=== PATIENT | male | born 1955 | race Caucasian/White ===

== ENCOUNTER 2023-01-23 14:50 | Observation (INO) | payer MEDICARE, SELFPAY ==
[2023-01-23] VITALS (30 sets, daily range): BP systolic 112–142; BP diastolic 70–103; PULSE 49–139; RESP 13–33; TEMP 36.7–36.8; O2SAT 94–97; BMI 26.4; BMI 25.9
--- NOTE | 2023-01-23 14:59 | DI.RAD.S_ITS ---
PROCEDURE: XR CHEST 1V INDICATIONS: chest pain TECHNIQUE: One view of the chest was acquired. COMPARISON: None. FINDINGS: Surgical changes and devices: None. Lungs and pleura: Lungs are clear. No pleural effusions or pneumothorax. Mediastinum: Mildly tortuous thoracic aorta is seen. Heart size is normal. Bones and chest wall: No suspicious bony lesions. Overlying soft tissues appear unremarkable. IMPRESSION: No acute cardiopulmonary pathology. Dictated by: Matias Oden M.D. on 01/23/2023 at 15:44 Approved by: Matias Oden M.D. on 01/23/2023 at 15:44
[2023-01-23] MEDS: ASPIRIN 81 MG CHEW TAB 324 MG PO (15:09)
[2023-01-23 15:19] LABS: Add Manual Diff / Slide Review NO; Basophils Absolute Auto 100 /uL (0-100); Eosinophils Absolute Auto 100 /uL (0-450); Eosinophils Percent Auto 1.7 % (2-4); Hematocrit 44.6 % (41-53); Hemoglobin 15.5 g/dL (13.5-17.5); Lymphocytes Absolute Auto 2200 /uL (1100-4500); Lymphocytes Percent Auto 29.2 % (25-40); Mean Corpuscular HGB Conc 34.6 % (30-36); Mean Corpuscular Hemoglobin 32.5 PG (26-34); Monocytes Absolute Auto 1100 /uL (0-900); Monocytes Percent Auto 15.2 % (3-14); Neutrophils Absolute Auto 3900 /uL (1500-7000); Neutrophils Percent Auto 52.9 % (50-75); Platelet Count 183 X10^3/uL (150-400); Red Blood Cell Count 4.75 X10^6/uL (4.5-5.9); Red Cell Distribution Width 12.4 % (11.6-14.8); White Blood Cell Count 7.4 X10^3/uL (4.5-11.0)
[2023-01-23 15:24] LABS: Prothrombin Time 11.5 SECONDS (10.1-12.7)
[2023-01-23 15:27] LABS: PTT Partial Thromboplastin Tim 32 SECONDS (26-36)
[2023-01-23 15:35] LABS: Alanine Aminotransferase 26 IU/L (<50); Albumin 4.4 g/dL (3.5-5.0); Albumin Globulin Ratio 1.3 (1.0-2.8); Alkaline Phosphatase 68 U/L (38-126); Aspartate Aminotransferase 37 IU/L (17-59); BUN Creatinine Ratio 18.1 (6-22); Blood Urea Nitrogen 15 mg/dL (9-20); Calcium 9.1 mg/dL (8.4-10.2); Carbon Dioxide 26 mmol/L (22-32); Chloride 102 mmol/L (98-107); Creatine Kinase 47 U/L (55-170); Estimated Glomerular Filt Rate > 60 mL/min (>60); Globulin 3.4 g/dL (1.7-4.1); Glucose 93 mg/dL (80-110); HEMOLYSIS 38 (0-50); Lipase 79 U/L (23-300); Magnesium 1.9 mg/dL (1.6-2.3); Potassium 4.5 mmol/L (3.4-5.1); Sodium 136 mmol/L (137-145); Total Protein 7.8 g/dL (6.3-8.2)
--- NOTE | 2023-01-23 15:44 | ED_ITS ---
HPI - Arrhythmia/Palpitations General Chief Complaint: Arrhythmia/Palpitations Stated Complaint: dr ref/afib Time Seen by Provider: 01/23/23 15:44 Source: patient Mode of arrival: Ambulatory Limitations: no limitations History of Present Illness HPI narrative: This is a 67-year-old male with history of asthma, prior TIA with PFO closure about 20 years ago. Patient states he noticed regular heartbeat this morning he states it was a lot worse than his actually improved now. States no chest pain or pressure but does feel little tight when he exerts himself, only shortness of breath with exertion but not enough to really wind him. No diaphoresis, no lightheadedness or passing out, no nausea or vomiting, no swelling of extremities. Patient does not think he is had similar episodes in the past. He states other surgeries besides is PFO closure. Use albuterol and Flovent as needed. No aspirin or thinners. No known drug allergies. No tobacco, drinks 3 glasses of wine daily, no illicit. He has a sister who has reportedly SVT. Parents do not have any cardiac arrhythmia history. His primary care is Dr. [facility]. Does not follow with any other speciality physicians. Lives on [address] [address]. Related Data Home Medications Medication Instructions Recorded Confirmed albuterol 90 mcg/actuation aerosol mcg inhalation 01/23/23 01/23/23 inhaler fluticasone propionate 220 1 puff inhalation BID 01/23/23 01/23/23 mcg/actuation HFA aerosol inhaler (Flovent HFA) Allergies Allergy/AdvReac Type Severity Reaction Status Date / Time No Known Drug Allergies Allergy Verified 01/23/23 14:59 Review of Systems Review of Systems ROS Unobtainable: All systems reviewed & are unremarkable except as noted in HPI and below Patient History Social History Smoking Status: Never smoker Smoking Status: Never smoker alcohol intake frequency: 3 or more drinks per day Alcohol type: wine Substance Use Type: does not use Exam Narrative Exam Narrative: GENERAL: Alert and oriented x three, well-appearing male in mild distress HEENT: Head normocephalic, atraumatic, EOMI, pupils reactive, face symmetric, moist mucous membranes NECK: Supple, full range of motion CARDIOVASCULAR: Irregularly irregular rate and rhythm without murmurs, rubs or gallops. No JVD. No swelling bilateral lower extremities. RESPIRATORY: Breath sounds equal bilaterally, no wheezes rales or rhonchi. No tachypnea or accessory muscle use. ABDOMEN: Soft, nontender. Normoactive bowel sounds all 4 quadrants. No guarding or rebound, rigidity, no mass : No CVA tenderness EXTREMITIES: Normal range of motion, no clubbing or edema. Neurovascularly intact NEUROLOGICAL: Cranial nerves II through XII grossly intact. Moving all extremities SKIN: Warm, dry, no petechiae, no rashes or lesions. Initial Vital Signs Initial Vital Signs: Vital Signs Temperature 98.3 F 01/23/23 14:53 Pulse Rate 71 01/23/23 14:53 Respiratory Rate 18 01/23/23 14:53 Blood Pressure 138/90 01/23/23 14:53 Pulse Oximetry 97 01/23/23 14:53 Oxygen Delivery Method Room Air 01/23/23 14:53 Course Orders Ordered: ED Orders 01/23/23 14:59 XR chest 1V Stat EKG-12 Lead Stat 01/23/23 15:00 BNP [NT-proBNP (BNP-Adult 18+)] Stat Complete Blood Count AUTO DIFF Stat Comprehensive Metabolic Panel Stat D Dimer Stat Lipase Stat Magnesium Stat PTT Partial Thromboplastin Galindo Stat Prothrombin Time INR Stat TSH [Thyroid Stimulating Hormone] Stat Troponin & CK Cardiac Panel Stat 01/23/23 18:03 Trop I [Troponin I] Stat DILTIAZEM (Diltiazem 125 Mg/125 Ml-D5w) 125 mg in 125 mls @ 5 mls/hr IV TITRATE CARA; Protocol Last Titration: 01/23/23 18:45 Dose: 10 mg/hr, 10 mls/hr Documented By: Titration: 01/23/23 18:37 Dose: 10 mg/hr, 10 mls/hr Documented By: Admin: 01/23/23 17:12 Dose: 5 mg/hr, 5 mls/hr Documented By: AMU Discontinued Medications Aspirin (Aspirin 81 Mg Chew Tab) 324 mg PO NOW ONE Stop: 01/23/23 15:00 Last Admin: 01/23/23 15:09 Dose: 324 mg Documented By: ALLEN Diltiazem HCl (Diltiazem 5 Mg/Ml Sdv) 10 mg IV NOW ONE Stop: 01/23/23 15:56 Last Admin: 01/23/23 16:00 Dose: 10 mg Documented By: AMU Diltiazem HCl (Diltiazem 5 Mg/Ml Sdv) 10 mg IV NOW ONE Stop: 01/23/23 16:19 Last Admin: 01/23/23 16:24 Dose: 10 mg Documented By: AMGary Sodium Chloride (Normal Saline 0.9%) 1,000 mls @ 1,000 mls/hr IV BOLUS ONE Stop: 01/23/23 16:54 Last Infusion: 01/23/23 16:50 Dose: 0 mls/hr Documented By: AMGary Admin: 01/23/23 15:58 Dose: 1,000 mls/hr Documented By: GEOVANY Metoprolol Tartrate (Metoprolol Ir 25 Mg Tablet) 25 mg PO NOW ONE Stop: 01/23/23 18:33 Last Admin: 01/23/23 18:35 Dose: 25 mg Documented By: GEOVANY Vital Signs Vital signs: Vital Signs - 8 hr 01/23/23 14:53 01/23/23 16:00 01/23/23 16:24 Temperature 98.3 F Pulse Rate 71 121 H 82 Respiratory Rate 18 Blood Pressure 138/90 136/91 H 139/102 H Pulse Oximetry 97 Oxygen Delivery Method Room Air 01/23/23 15:29 01/23/23 15:30 01/23/23 15:30 Temperature Pulse Rate 62 139 H Respiratory Rate 13 Blood Pressure 142/103 H Pulse Oximetry 96 96 Oxygen Delivery Method 01/23/23 16:00 01/23/23 16:00 01/23/23 16:10 Temperature Pulse Rate 116 H Respiratory Rate 21 Blood Pressure 136/91 H 133/93 H Pulse Oximetry 96 Oxygen Delivery Method 01/23/23 16:10 01/23/23 16:20 01/23/23 16:20 Temperature Pulse Rate 90 80 Respiratory Rate 19 20 Blood Pressure 139/102 H Pulse Oximetry 96 96 Oxygen Delivery Method 01/23/23 16:30 01/23/23 16:30 01/23/23 16:40 Temperature Pulse Rate 81 Respiratory Rate 20 Blood Pressure 119/76 124/84 Pulse Oximetry 94 Oxygen Delivery Method 01/23/23 16:40 01/23/23 16:50 01/23/23 16:50 Temperature Pulse Rate 70 74 Respiratory Rate 20 18 Blood Pressure 133/79 Pulse Oximetry 95 96 Oxygen Delivery Method 01/23/23 17:00 01/23/23 17:00 01/23/23 17:13 Temperature Pulse Rate 75 77 Respiratory Rate 14 Blood Pressure 118/73 Pulse Oximetry 96 97 Oxygen Delivery Method 01/23/23 17:13 01/23/23 17:20 01/23/23 17:20 Temperature Pulse Rate 79 Respiratory Rate 22 Blood Pressure 122/79 120/87 Pulse Oximetry 97 Oxygen Delivery Method 01/23/23 17:30 01/23/23 17:30 01/23/23 17:40 Temperature Pulse Rate 89 Respiratory Rate Blood Pressure 114/82 123/84 Pulse Oximetry 97 Oxygen Delivery Method 01/23/23 17:40 01/23/23 17:50 01/23/23 17:50 Temperature Pulse Rate 69 70 Respiratory Rate 19 Blood Pressure 137/89 Pulse Oximetry 97 97 Oxygen Delivery Method 01/23/23 18:00 01/23/23 18:00 Temperature Pulse Rate 77 Respiratory Rate 22 Blood Pressure 125/78 Pulse Oximetry 96 Oxygen Delivery Method MDM - Arrhythmia/Palpitations Lab Data 01/23/23 15:00 01/23/23 15:00 Labs: Lab Results 01/23/23 01/23/23 01/23/23 Range/Units 15:00 15:00 15:00 WBC 7.4 (4.5-11.0) X10^3/uL RBC 4.75 (4.5-5.9) X10^6/uL Hgb 15.5 (13.5-17.5) g/dL Hct 44.6 (41-53) % MCV 94.0 (80-100) fL MCH 32.5 (26-34) PG MCHC 34.6 (30-36) % RDW 12.4 (11.6-14.8) % Plt Count 183 (150-400) X10^3/uL Neut % (Auto) 52.9 (50-75) % Lymph % (Auto) 29.2 (25-40) % [place] % (Auto) 15.2 H (3-14) % Eos % (Auto) 1.7 L (2-4) % Baso % (Auto) 1.0 (0-2) % Neut # (Auto) 3900 (0530-5047) /uL Lymph # (Auto) 2200 (1629-4007) /uL [place] # (Auto) 1100 H (0-900) /uL Eos # (Auto) 100 (0-450) /uL Baso # (Auto) 100 (0-100) /uL PT 11.5 (10.1-12.7) SECONDS INR 1.0 (0.9-1.3) APTT 32 (26-36) SECONDS D-Dimer (<500) ng/ml Sodium 136 L (137-145) mmol/L Potassium 4.5 (3.4-5.1) mmol/L Chloride 102 (98-107) mmol/L Carbon Dioxide 26 (22-32) mmol/L BUN 15 (9-20) mg/dL Creatinine 0.83 (0.66-1.25) mg/dL Estimated GFR > 60 (>60) mL/min BUN/Creatinine Ratio 18.1 (6-22) Glucose 93 (80-110) mg/dL Calcium 9.1 (8.4-10.2) mg/dL Magnesium 1.9 (1.6-2.3) mg/dL Total Bilirubin 1.0 (0.2-1.3) mg/dL AST 37 (17-59) IU/L ALT 26 (<50) IU/L Alkaline Phosphatase 68 (38-126) U/L Total Creatine Kinase 47 L (55-170) U/L Troponin I 0.025 (0.01-0.034) ng/mL NT-Pro-B Natriuret Pep (<125) pg/mL Total Protein 7.8 (6.3-8.2) g/dL Albumin 4.4 (3.5-5.0) g/dL Globulin 3.4 (1.7-4.1) g/dL Albumin/Globulin Ratio 1.3 (1.0-2.8) Lipase 79 (23-300) U/L TSH (0.47-4.68) uIU/mL 01/23/23 01/23/23 01/23/23 Range/Units 15:00 15:00 15:00 WBC (4.5-11.0) X10^3/uL RBC (4.5-5.9) X10^6/uL Hgb (13.5-17.5) g/dL Hct (41-53) % MCV (80-100) fL MCH (26-34) PG MCHC (30-36) % RDW (11.6-14.8) % Plt Count (150-400) X10^3/uL Neut % (Auto) (50-75) % Lymph % (Auto) (25-40) % [place] % (Auto) (3-14) % Eos % (Auto) (2-4) % Baso % (Auto) (0-2) % Neut # (Auto) (2305-4829) /uL Lymph # (Auto) (2446-5189) /uL [place] # (Auto) (0-900) /uL Eos # (Auto) (0-450) /uL Baso # (Auto) (0-100) /uL PT (10.1-12.7) SECONDS INR (0.9-1.3) APTT (26-36) SECONDS D-Dimer 368 (<500) ng/ml Sodium (137-145) mmol/L Potassium (3.4-5.1) mmol/L Chloride (98-107) mmol/L Carbon Dioxide (22-32) mmol/L BUN (9-20) mg/dL Creatinine (0.66-1.25) mg/dL Estimated GFR (>60) mL/min BUN/Creatinine Ratio (6-22) Glucose (80-110) mg/dL Calcium (8.4-10.2) mg/dL Magnesium (1.6-2.3) mg/dL Total Bilirubin (0.2-1.3) mg/dL AST (17-59) IU/L ALT (<50) IU/L Alkaline Phosphatase (38-126) U/L Total Creatine Kinase (55-170) U/L Troponin I (0.01-0.034) ng/mL NT-Pro-B Natriuret Pep 73 (<125) pg/mL Total Protein (6.3-8.2) g/dL Albumin (3.5-5.0) g/dL Globulin (1.7-4.1) g/dL Albumin/Globulin Ratio (1.0-2.8) Lipase (23-300) U/L TSH 2.24 (0.47-4.68) uIU/mL 01/23/23 Range/Units 18:03 WBC (4.5-11.0) X10^3/uL RBC (4.5-5.9) X10^6/uL Hgb (13.5-17.5) g/dL Hct (41-53) % MCV (80-100) fL MCH (26-34) PG MCHC (30-36) % RDW (11.6-14.8) % Plt Count (150-400) X10^3/uL Neut % (Auto) (50-75) % Lymph % (Auto) (25-40) % [place] % (Auto) (3-14) % Eos % (Auto) (2-4) % Baso % (Auto) (0-2) % Neut # (Auto) (1115-3666) /uL Lymph # (Auto) (1175-7803) /uL [place] # (Auto) (0-900) /uL Eos # (Auto) (0-450) /uL Baso # (Auto) (0-100) /uL PT (10.1-12.7) SECONDS INR (0.9-1.3) APTT (26-36) SECONDS D-Dimer (<500) ng/ml Sodium (137-145) mmol/L Potassium (3.4-5.1) mmol/L Chloride (98-107) mmol/L Carbon Dioxide (22-32) mmol/L BUN (9-20) mg/dL Creatinine (0.66-1.25) mg/dL Estimated GFR (>60) mL/min BUN/Creatinine Ratio (6-22) Glucose (80-110) mg/dL Calcium (8.4-10.2) mg/dL Magnesium (1.6-2.3) mg/dL Total Bilirubin (0.2-1.3) mg/dL AST (17-59) IU/L ALT (<50) IU/L Alkaline Phosphatase (38-126) U/L Total Creatine Kinase (55-170) U/L Troponin I 0.028 (0.01-0.034) ng/mL NT-Pro-B Natriuret Pep (<125) pg/mL Total Protein (6.3-8.2) g/dL Albumin (3.5-5.0) g/dL Globulin (1.7-4.1) g/dL Albumin/Globulin Ratio (1.0-2.8) Lipase (23-300) U/L TSH (0.47-4.68) uIU/mL Imaging Data Chest x-ray: Radiologist's Impresson: [address] [address] XRay Report Signed Patient: Gera Bennett MR#: [id number] : 1955 Acct:[id number] Age/Sex: 67 / M Date of Service: 01/23/23 Loc: ED Accession Number: [id number] ?? Procedure: XR chest 1V Ordering Provider: Danika Lopez D.O. PROCEDURE:? XR CHEST 1V ? INDICATIONS:? chest pain ? TECHNIQUE:? One view of the chest was acquired.? ? COMPARISON:? None. ? FINDINGS:? ? Surgical changes and devices:? None.? ? Lungs and pleura:? Lungs are clear.? No pleural effusions or pneumothorax.? ? Mediastinum:? Mildly tortuous thoracic aorta is seen.? Heart size is normal.? ? Bones and chest wall:? No suspicious bony lesions.? Overlying soft tissues appear unremarkable.? ? IMPRESSION:? No acute cardiopulmonary pathology. ? ? Dictated by: Matias Oden M.D. on 01/23/2023 at 15:44 ? ? Approved by: Matias Oden M.D. on 01/23/2023 at 15:44?? ECG Data Attestation: I personally reviewed and interpreted this ECG as follows: Prior ECG tracings: not available for review Interpretation[facility] arrived with shows AFib with rapid ventricular response when he 43, QRS of [address]TC [address] No acute ST elevation. Patient has some depression in V3 V4. Repeat EKG here in the department shows atrial fibrillation with RVR with a rate of 128 QRS of 96 QTC of 400, no elevation noted. Patient has little bit depression V4 5 6 does not appear significantly changed from prior today. No priors available. MDM Narrative Medical decision making narrative: 67-year-old male with a new onset of AFib with RVR, possibly overnight but patient states it felt much worse this morning feels improved now came with a heart rate 20s to 150s. Patient does have history of PFO found after he had TIA approximately 20 years ago had repair. No other no cardiac history does have family history this sister with reported SVT history. Patient does not have any major changes to CBC, coags dimer is negative, electrolytes sitting magnesium potassium are 4.5 and 1.9 respectively, troponin was 0.025 and repeat is 0.028, TSH is negative. Chest x-ray shows no acute changes, no infection or CHF. Patient did have some ST depression in lateral leads with tachycardia. First 2 doses of diltiazem 10 mg IV so heart rate somewhat but minimal change. Started on drip, patient had significant improvement into the 70s. Discussed with Dr. Cobb who asked for 2nd troponin which was performed, oral dose of metoprolol 25 mg and accepts patient for ICU with goal to wean off on diltiazem drip. Discussed with patient he is agreeable to the plan. We did note that he drinks about 3 alcoholic drinks daily and this could predispose him a little bit to cardiac arrhythmias. Discharge Plan Departure Patient Disposition: Admitted as Observation Clinical Impression: Atrial fibrillation with rapid ventricular response Admit Date/Time: 01/23/23 18:08 Admit Provider: Mars Cobb
[2023-01-23 15:46] LABS: Troponin I 0.025 ng/mL (0.01-0.034)
[2023-01-23] MEDS: SODIUM CHLORIDE 0.9% 1,000 ML 1000 ML IV (15:58)
[2023-01-23] MEDS: dilTIAZem 5 MG/ML SDV 10 MG IV ×2 (16:00→16:24)
[2023-01-23 16:08] LABS: NT-proBNP (BNP-Adult 18+) 73 pg/mL (<125)
[2023-01-23 16:15] LABS: D Dimer 368 ng/ml (<500)
[2023-01-23 16:30] LABS: Thyroid Stimulating Hormone 2.24 uIU/mL (0.47-4.68)
[2023-01-23] MEDS: DILTIAZEM 125 MG/125 ML PIGGYBACK IV (17:12)
[2023-01-23] MEDS: METOPROLOL IR 25 MG TABLET PO (18:35)
[2023-01-23 18:42] LABS: Troponin I 0.028 ng/mL (0.01-0.034)
--- NOTE | 2023-01-23 19:29 | DI.ECHO.S_ITS ---
[facility] +---------+ [facility] +---------+ : : [address] : : : : [id number] : : : : Phone: [phone] Echocardiogram Report + + :Name: TONY CURTIS Study Date: 01/24/2023 Height: 72 in : :[facility] ReadingLocation: Weight: 191 lb : : Gender: Male BSA: 2.1 m2 : :: 1955 Age: 67 yrs BP: 109/67 mmHg: :Reason For Study: ATRIAL FIBRILLATION : :Ordering Physician: IRLANDA, : :HARRY Performed By: Micaela Laughlin : :Referring: HARRY FOURNIER : + + Interpretation Summary 1) Normal left ventricular size and thickness with mildly reduced systolic function (EF 45-50%). 2) Mildly enlarged right ventricle with low normal function. 3) The left atrium is moderately dilated. 4) There is mild to moderate aortic regurgitation. 5) The ascending aorta is moderately enlarged at 4.5cm. 6) No prior Echo available for comparisoin. Procedure: A two-dimensional transthoracic echocardiogram with color flow and Doppler was performed. The study quality was technically adequate. There is no prior echocardiogram noted for this patient. The patient was in atrial fibrillation with heart rates between 61-85 bpm during the exam. Left Ventricle: The left ventricle is normal in size and wall thickness. The ejection fraction is estimated to be 45-50%. There is mild global hypokinesis of the left ventricle. Diastolic function could not be accurately assessed due to atrial fibrillation. Right Ventricle: The right ventricle is mildly dilated. Right ventricular systolic function is at the lower limits of normal. Atria: The left atrium is moderately dilated. Right atrial size is normal. There is no Doppler evidence for an interatrial shunt. Mitral Valve: The mitral valve is normal in structure and function. There is mild mitral regurgitation. Aortic Valve: The aortic valve is trileaflet. The aortic valve opens well. There is no aortic valve stenosis. There is mild to moderate aortic regurgitation. Tricuspid Valve: The tricuspid valve is normal in structure and function. There is mild tricuspid regurgitation. Pulmonary artery pressures cannot be estimated because of the lack of a measurable TR jet velocity. Pulmonic Valve: The pulmonic valve leaflets are thin and pliable; valve motion is normal. There is mild pulmonic regurgitation. Great Vessels: The aortic root is moderately dilated. The ascending aorta is moderately enlarged. The IVC is dilated (diameter is greater than 2.1 cm) yet it collapses greater than 50% with a sniff. This suggests a right atrial pressure of 8 mm Hg. Pericardium/ Pleura There is no pericardial effusion. There is no pleural effusion. MMode/2D Measurements & Calculations LVIDd: 5.2 cm LVOT diam: 2.5 cm LVIDs: 3.7 cm Ao root diam: 4.5 cm FS: 28.6 % asc Aorta Diam: 4.5 cm EPSS: 1.8 cm Ao Arch Diam (Prox Trans): 3.7 cm IVSd: 0.96 cm LVPWd: 0.87 cm LV meléndez. diameter/BSA (cm/m^2): 2.5 LV sys. diameter/BSA (cm/m^2): 1.8 LA A2 area: 25.0 cm2 RA long axis: 5.2 cm LA A4 area: 17.9 cm2 RA area: 16.3 cm2 LA length (vol): 4.8 cm RA vol: 43.4 ml LA vol: 79.6 ml RA : 20.8 ml/m2 LA vol index: 38.1 ml/m2 IVC diam: 2.3 cm RVD1 (basal): 4.2 cm RVD2 (mid): 3.6 cm TAPSE: 1.6 cm Doppler Measurements & Calculations Ao V2 max: 87.6 cm/sec LVOT Max Chetan: 75.6 cm/sec Ao V2 mean: 66.5 cm/sec LV V1 max P.3 mmHg Ao max P.1 mmHg LV V1 VTI: 14.1 cm Ao mean P.9 mmHg RAFY(I,D): 4.2 cm2 Ao V2 VTI: 16.8 cm RAFY(V,D): 4.3 cm2 sev ratio: 0.84 RAFY indexed to BSA (cm^2/m^2): 2.0 MV E max chetan: 48.2 cm/sec PA V2 max: 73.3 cm/sec MV A max chetan: 2.0 cm/sec PA V2 mean: 49.7 cm/sec MV E/A: 24.3 PA mean P.1 mmHg Med Peak E' Chetan: 7.0 cm/sec PA pr(Accel): 34.5 mmHg E/E' med: 6.9 Lat Peak E' Chetan: 8.3 cm/sec E/E' lat: 5.8 E/e' average: 6.4 MV dec time: 0.23 sec SV(LVOT): 70.5 ml Reading Physician:12:10 PM
[2023-01-23 20:12] LABS: Ethanol (ETOH) < 10 mg/dL
[2023-01-23 20:39] LABS: Free T4, Direct Thyroxine 1.29 ng/dL (0.78-2.19)
[2023-01-23] MEDS: APIXABAN 5 MG TABLET PO (20:43)
--- NOTE | 2023-01-23 21:05 | P.HP_ITS ---
History of Present Illness History of Present Illness Date Patient Seen: 01/23/23 Time Patient Seen: 20:30 Chief complaint: dr ref/afib Narrative: Gera Bennett is a 67-year-old male with a past medical history of TIA, PFO closure (20yrsago), and asthma takes only albuterol and Flovent, who woke up this morning feeling a pounding rapid heart rate with no other associated symptoms. Lives on [facility] presented to the ED with hypertensive urgency 139/102, 142/103, in atrial fibrillation heart rates 116-139. I personally reviewed- EKG: AFib with RVR rate 143 ST depression in V4, V5, V6, no EKG for comparison. Patient was given 2 doses 10 mg IV diltiazem without improvement, was placed on diltiazem drip, was also then given oral metoprolol 25 mg. 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 On admit patient denies chest pain, shortness in breath, headache, changes in vision, difficulty swallowing, speech impairment, weakness, numbness, tingling, difficulty with ambulation, recent falls, head injury, LOC, fever, body aches, chills, cough, recent exposure to illness, abdominal pain, nausea, vomiting, urinary incontinence/retention, dysuria, frequency, urgency, hematuria, bowel changes, constipation, incontinence, melena, rashes, recent changes to m edication, illness, injury, or trauma. Patient continues to be asymptomatic at the time of admit, diltiazem drip has been paused as his heart rate has been dipping into the 50s. Temp 98.3?, 124/82, 67, 18, 97% on room air. Patient is sitting up on the side of the bed eating comfortably. CBC CMP are all normal, initial troponins are normal 0.025, 0.028. D-dimer 368 and BNP 73 are normal. Chest x-ray is negative. Patient is admitted for atrial fibrillation with RVR. [facility] Medical History Asthma History of TIA (transient ischemic attack) Surgical History S/P patent foramen ovale closure Family History (Updated 01/23/23 @ 21:14 by JOSE Price) Father Lung fibrosis Sister Status post ablation of atrial fibrillation Mother Congestive heart failure Social History (Updated 01/23/23 @ 21:15 by JOSE Price) marital status: household members: spouse lives independently: Yes housing: house occupational status: employed Smoking Status: Never smoker alcohol intake: current substance use type: does not use Meds Home Medications and Allergies Allergies Allergy/AdvReac Type Severity Reaction Status Date / Time No Known Drug Allergies Allergy Verified 01/23/23 14:59 Review of Systems Review of Systems Narrative: On admit patient denies chest pain, shortness in breath, headache, changes in vision, difficulty swallowing, speech impairment, weakness, numbness, tingling, difficulty with ambulation, recent falls, head injury, LOC, fever, body aches, chills, cough, recent exposure to illness, abdominal pain, nausea, vomiting, urinary incontinence/retention, dysuria, frequency, urgency, hematuria, bowel changes, constipation, incontinence, melena, rashes, recent changes to medication, illness, injury, or trauma. Exam Vital Signs (past 8 hours): - 01/23/23 14:53 01/23/23 16:00 01/23/23 16:24 Temperature 98.3 F Pulse Rate 71 121 H 82 Respiratory Rate 18 Blood Pressure 138/90 136/91 H 139/102 H Pulse Oximetry 97 Oxygen Delivery Method Room Air Oxygen Flow Rate 01/23/23 15:29 01/23/23 15:30 01/23/23 15:30 Temperature Pulse Rate 62 139 H Respiratory Rate 13 Blood Pressure 142/103 H Pulse Oximetry 96 96 Oxygen Delivery Method Oxygen Flow Rate 01/23/23 16:00 01/23/23 16:00 01/23/23 16:10 Temperature Pulse Rate 116 H Respiratory Rate 21 Blood Pressure 136/91 H 133/93 H Pulse Oximetry 96 Oxygen Delivery Method Oxygen Flow Rate 01/23/23 16:10 01/23/23 16:20 01/23/23 16:20 Temperature Pulse Rate 90 80 Respiratory Rate 19 20 Blood Pressure 139/102 H Pulse Oximetry 96 96 Oxygen Delivery Method Oxygen Flow Rate 01/23/23 16:30 01/23/23 16:30 01/23/23 16:40 Temperature Pulse Rate 81 Respiratory Rate 20 Blood Pressure 119/76 124/84 Pulse Oximetry 94 Oxygen Delivery Method Oxygen Flow Rate 01/23/23 16:40 01/23/23 16:50 01/23/23 16:50 Temperature Pulse Rate 70 74 Respiratory Rate 20 18 Blood Pressure 133/79 Pulse Oximetry 95 96 Oxygen Delivery Method Oxygen Flow Rate 01/23/23 17:00 01/23/23 17:00 01/23/23 17:13 Temperature Pulse Rate 75 77 Respiratory Rate 14 Blood Pressure 118/73 Pulse Oximetry 96 97 Oxygen Delivery Method Oxygen Flow Rate 01/23/23 17:13 01/23/23 17:20 01/23/23 17:20 Temperature Pulse Rate 79 Respiratory Rate 22 Blood Pressure 122/79 120/87 Pulse Oximetry 97 Oxygen Delivery Method Oxygen Flow Rate 01/23/23 17:30 01/23/23 17:30 01/23/23 17:40 Temperature Pulse Rate 89 Respiratory Rate Blood Pressure 114/82 123/84 Pulse Oximetry 97 Oxygen Delivery Method Oxygen Flow Rate 01/23/23 17:40 01/23/23 17:50 01/23/23 17:50 Temperature Pulse Rate 69 70 Respiratory Rate 19 Blood Pressure 137/89 Pulse Oximetry 97 97 Oxygen Delivery Method Oxygen Flow Rate 01/23/23 18:00 01/23/23 18:00 01/23/23 18:10 Temperature Pulse Rate 77 Respiratory Rate 22 Blood Pressure 125/78 129/80 Pulse Oximetry 96 Oxygen Delivery Method Oxygen Flow Rate 01/23/23 18:10 01/23/23 18:20 01/23/23 18:20 Temperature Pulse Rate 63 78 Respiratory Rate 14 Blood Pressure 127/82 Pulse Oximetry 95 95 Oxygen Delivery Method Oxygen Flow Rate 01/23/23 18:30 01/23/23 18:30 01/23/23 18:59 Temperature Pulse Rate 73 67 Respiratory Rate 22 18 Blood Pressure 127/81 124/82 Pulse Oximetry 95 97 Oxygen Delivery Method Room Air Oxygen Flow Rate 01/23/23 18:40 01/23/23 18:40 01/23/23 19:00 Temperature Pulse Rate 70 79 Respiratory Rate 25 H 33 H Blood Pressure 132/84 Pulse Oximetry 97 97 Oxygen Delivery Method Oxygen Flow Rate 01/23/23 19:14 01/23/23 19:14 01/23/23 19:43 Temperature Pulse Rate 72 Respiratory Rate 21 Blood Pressure 115/77 129/83 Pulse Oximetry 97 Oxygen Delivery Method Oxygen Flow Rate 0 01/23/23 19:43 01/23/23 20:00 01/23/23 20:01 Temperature 98.0 F Pulse Rate 49 L 69 75 Respiratory Rate 14 30 H 18 Blood Pressure Pulse Oximetry 96 95 96 Oxygen Delivery Method Oxygen Flow Rate 0 01/23/23 20:01 Temperature Pulse Rate Respiratory Rate Blood Pressure 122/90 Pulse Oximetry Oxygen Delivery Method Oxygen Flow Rate Oxygen Delivery Method Room Air Oxygen Flow Rate 0 Narrative Exam Narrative: General: Patient is a well-developed, well-nourished in no distress at this time. HEENT: Normocephalic, atraumatic, extraocular muscles intact, oral pharynx is clear and mucous membranes are moist. Neck is supple and symmetric, trachea is midline, no adenopathy, no thyroid enlargement, nontender, no masses palpated. Negative for JVD Chest: Normal AP diameter and contour without kyphoscoliosis, Equal chest rise without nasal flaring, retractions, tachypneic or labored breathing. Lungs: Auscultation of all lung bishop are clear without adventitious sounds, wheezes, rhonchi, or rales. Cardio: regular rate and rhythm without murmur, rubs, or gallops, no carotid bruit, no cardiac pulsations present. Abdomen: Soft nontender, negative for organomegaly, or masses. Bowel sounds are present in all 4 quadrants without guarding or rebound, no CVA tenderness. Musculoskeletal: Muscle strength and tone are equal, no deformity, crepitus, effusions, cyanosis, clubbing or edema present. Full range of motion intact radial and pedal pulses are normal. Skin: Warm dry and intact without rashes, ulcerations or petechiae. Neuro: Alert and orientated x3, moves all extremities, sensation to touch intact, no gross deficits noted of cranial nerves. Psych: Patient has a well-kept appearance, appropriate affect, mental status attitude thought context and judgment are appropriate for age. Objective Labs 01/23/23 15:00 01/23/23 15:00 Labs: Laboratory Results - last 24 hr 01/23/23 01/23/23 01/23/23 15:00 15:00 15:00 WBC 7.4 RBC 4.75 Hgb 15.5 Hct 44.6 MCV 94.0 MCH 32.5 MCHC 34.6 RDW 12.4 Plt Count 183 Neut % (Auto) 52.9 Lymph % (Auto) 29.2 [place] % (Auto) 15.2 H Eos % (Auto) 1.7 L Baso % (Auto) 1.0 Neut # (Auto) 3900 Lymph # (Auto) 2200 [place] # (Auto) 1100 H Eos # (Auto) 100 Baso # (Auto) 100 PT 11.5 INR 1.0 APTT 32 D-Dimer Sodium 136 L Potassium 4.5 Chloride 102 Carbon Dioxide 26 BUN 15 Creatinine 0.83 Estimated GFR > 60 BUN/Creatinine Ratio 18.1 Glucose 93 Calcium 9.1 Magnesium 1.9 Total Bilirubin 1.0 AST 37 ALT 26 Alkaline Phosphatase 68 Total Creatine Kinase 47 L Troponin I 0.025 NT-Pro-B Natriuret Pep Total Protein 7.8 Albumin 4.4 Globulin 3.4 Albumin/Globulin Ratio 1.3 Lipase 79 TSH Free T4 Ethyl Alcohol 01/23/23 01/23/23 01/23/23 15:00 15:00 15:00 WBC RBC Hgb Hct MCV MCH MCHC RDW Plt Count Neut % (Auto) Lymph % (Auto) [place] % (Auto) Eos % (Auto) Baso % (Auto) Neut # (Auto) Lymph # (Auto) [place] # (Auto) Eos # (Auto) Baso # (Auto) PT INR APTT D-Dimer 368 Sodium Potassium Chloride Carbon Dioxide BUN Creatinine Estimated GFR BUN/Creatinine Ratio Glucose Calcium Magnesium Total Bilirubin AST ALT Alkaline Phosphatase Total Creatine Kinase Troponin I NT-Pro-B Natriuret Pep 73 Total Protein Albumin Globulin Albumin/Globulin Ratio Lipase TSH 2.24 Free T4 Ethyl Alcohol 01/23/23 01/23/23 01/23/23 18:03 19:50 19:50 WBC RBC Hgb Hct MCV MCH MCHC RDW Plt Count Neut % (Auto) Lymph % (Auto) Alger % (Auto) Eos % (Auto) Baso % (Auto) Neut # (Auto) Lymph # (Auto) Alger # (Auto) Eos # (Auto) Baso # (Auto) PT INR APTT D-Dimer Sodium Potassium Chloride Carbon Dioxide BUN Creatinine Estimated GFR BUN/Creatinine Ratio Glucose Calcium Magnesium Total Bilirubin AST ALT Alkaline Phosphatase Total Creatine Kinase Troponin I 0.028 NT-Pro-B Natriuret Pep Total Protein Albumin Globulin Albumin/Globulin Ratio Lipase TSH Free T4 1.29 Ethyl Alcohol < 10 Assessment & Plan Assessment & Plan narrative: Gera Bennett is a 67-year-old male with a history of TIA and PFO closure 20 years ago, asthma and takes albuterol and Flovent who is admitted to ICU observation for AFib with RVR on a diltiazem drip. Atrial fibrillation, new, acute, present on admission * ED: HR 116 to 143-AFib on echocardiogram * admitted to the ICU OBS on Dilt drip protocol-taper off * Metoprolol 25 mg b.i.d. -1st dose given in ED * Eliquis * Echo tomorrow Hypertensive urgency without the diagnosis of hypertension, acute, present on admission * ED: 139/102, 142/103 * Admit: 124/82 * Initiate 7/ orthostatics q.4 hours while awake only Asthma, chronic, moderate, present on admission * Continue albuterol and Flovent Overweight, mild, acute on chronic, present on admission * BMI 26 * dietary consult ordered regarding nutritional education and information for d ietary, lifestyle, exercise, and weight changes. * the patient is at much higher risk for medical and surgical complications due to obesity as it relates to chronic illnesses:, and acute illness. The patient's obesity increases the difficulty and complexity of medical and/or surgical interventions, management and increases the chances of poor outcome such as morbidity and mortality as well as impaired wound healing. Code status: Full Surrogate decision maker: Spouse/ DVT/VTE prophylaxis: Eliquis and SCDs Disposition: Patient admitted to the ICU for observation, expected length of stay not to exceed 2 midnights. I have utilized all available immediate resources to obtain, update, or review the patient's current medications. I confirmed that the patient's advanced care plan is present, Code status is documented and/or surrogate decision maker is listed in the patient's medical record. I have personally reviewed patient's chart notes from PCP, specialists, diagnostic imaging, and laboratory results. Scores ABCD2 Age >= 60 years: yes Initial BP. Either SBP >= 140 or DBP >= 90.: yes Clinical features of the TIA: other symptoms Duration of symptoms: >= 60 minutes History of diabetes: no ABCD2 Score: 4 CHADS-VASc Congestive heart failure: no Hypertension: no Age 75 years or older: no Diabetes mellitus: no Stroke, TIA, or TE: yes Vascular disease: no Age 65 to 74 years: yes Sex category (female): Male CHADS-VASc Score: 3
[2023-01-24] VITALS (9 sets, daily range): BP systolic 109–138; BP diastolic 67–87; PULSE 60–72; RESP 12–17; TEMP 36.2–36.6; O2SAT 95–98
[2023-01-24 05:20] LABS: BUN Creatinine Ratio 20.5 (6-22); Blood Urea Nitrogen 16 mg/dL (9-20); Calcium 8.6 mg/dL (8.4-10.2); Carbon Dioxide 26 mmol/L (22-32); Chloride 106 mmol/L (98-107); Cholesterol 184 mg/dL (140-199); Estimated Glomerular Filt Rate > 60 mL/min (>60); Glucose 95 mg/dL (80-110); HDL Cholesterol 59 mg/dL (40-60); HEMOLYSIS < 15 (0-50); LDL Cholesterol Calculated 107 mg/dL (<100); Magnesium 2.1 mg/dL (1.6-2.3); Potassium 4.1 mmol/L (3.4-5.1); Sodium 138 mmol/L (137-145); Triglycerides 88 mg/dL (35-150)
[2023-01-24 05:30] LABS: Troponin I 0.019 ng/mL (0.01-0.034)
[2023-01-24] MEDS: APIXABAN 5 MG TABLET PO (08:03)
[2023-01-24] MEDS: METOPROLOL IR 25 MG TABLET PO (08:04)
--- NOTE | 2023-01-24 08:05 | OT.IPNOTE ---
Per PT pt is completely independent in the room and hospitalist in agreement to ok discharge OT eval orders.
--- NOTE | 2023-01-24 08:18 | PT.IIE ---
Current Diagnoses Unspecified atrial fibrillation (01/23/23) [facility] History ([facility]23 [facility] 21[facility] S/P patent foramen ovale closure Medical History (Last Reviewed 01/23/23 @ 21:13 [facility] Asthma History of TIA (transient ischemic attack) Physical Therapy Inpatient Evaluation/Re-Eval M1 PT/OT-IP Prior Functional Status Start: 01/24/23 08:08 Freq: NEEDED Status: Active Protocol: Document 01/24/23 08:09 [facility] (Rec: 01/24/23 08:18 [facility] [id number]) Medical Review Prior Functional Status Medical History Reviewed Yes Diet/Fluid Consistency Regular Communication WNL Mobility and Gait indep no AD, 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 M2 PT-IP Current Condition Start: 01/24/23 08:08 Freq: NEEDED Status: Active Protocol: Document 01/24/23 08:09 [facility] (Rec: 01/24/23 08:18 [facility] [id number]) Physical Therapy Current Condition Current Condition Evaluation Date 01/24/23 Treatment Diagnosis Afib, RVR M3 PT-IP Subjective Start: 01/24/23 08:08 Freq: NEEDED Status: Active Protocol: Document 01/24/23 08:09 [facility] (Rec: 01/24/23 08:18 [facility] [id number]) Subjective Physical Therapy Visit Type Type Initial Evaluation Visit Start Time 07:45 Visit Stop Time 08:04 Total Visit Minutes 19 Number of RADIOLOGY TRANSCRIPTIONIST Visits 0 Physical Therapy Visit Comments Patient Comments Pt reports no concerns for home M4 PT-IP Mobility and Gait Start: 01/24/23 08:08 Freq: NEEDED Status: Active Protocol: Document 01/24/23 08:09 [facility] (Rec: 01/24/23 08:18 [facility] [id number]) PT-Bed Mobility Assessment Supine to Sit Supine to Sit Independent Scooting Scooting to Edge of Bed Independent Scooting Up and Down in Bed Independent PT-Transfer Assessment Sit to and From Stand Sit to and from Stand Independent Equipment Transfer Assistive Device Gait Belt Transfer Ability Level of Assist Independent Gait Assessment Gait Gait Assistance Required: Independent Distance (Feet) 300 Able to Maintain Weight Bearing Status Yes During Gait Assistive Devices Assistive Device Gait Belt Orthotic/Prosthetic Devices or Brace: No Gait Deviations General Gait Pattern Within Normal Limits Stair Climbing Assessment Evaluation Level of Assist On Stairs Standby Assistance Devices Stair Climbing Assistive Devices Left Railing Technique/Endurance Stair Climbing Direction Ascend and Descend Stair Climbing Technique Step Over Step Number of Steps Climbed 4 Query Text: Stair Climbing Set # Repetitions (reps) 1 PT-Balance Assessment Sitting Balance and Reactions Static Sitting Balance Ability Normal Dynamic Sitting Balance Ability Normal Standing Balance and Reactions Static Standing Balance Ability Normal Dynamic Standing Balance Ability Normal Device Used none Balance Tests Jaramillo Balance Test Score 54/56 Query Text:Score M5 PT-IP Objective Assessments Start: 01/24/23 08:08 Freq: NEEDED Status: Active Protocol: Document 01/24/23 08:09 [facility] (Rec: 01/24/23 08:18 [facility] [id number]) Orientation Orientation/Cognition Level of Alertness Alert Language Function Ability No Deficits Noted Safety Awareness Understands Safety Issues Memory Description No Deficits Noted Gross Range of Motion Upper Extremity ROM Assessment Within Functional Limits Lower Extremity ROM Assessment Within Functional Limits Strength Upper Extremity Strength Assessment Within Functional Limits Lower Extremity Strength Assessment Within Functional Limits M6 PT-IP Treatment Start: 01/24/23 08:08 Freq: NEEDED Status: Active Protocol: Document 01/24/23 08:09 [facility] (Rec: 01/24/23 08:18 [facility] [id number]) Physical Therapy Treatment Education Education Provided Safety M7 PT-IP Assessment and Plan Start: 01/24/23 08:08 Freq: NEEDED Status: Active Protocol: Document 01/24/23 08:09 [facility] (Rec: 01/24/23 08:18 [facility] [id number]) PT Summary Assessment and Plan Potential Rehabilitation Potential Excellent Status of Condition at Evaluation Stable Summary Assessment Summary Pt presented to hospital w/ Afib and RVR and notes yesterday he would have had difficulty w/mobility. Today, pt did well with mobilty. BP 134/84 after sitting up. He was indep w/all mobility and showed low risk for falls w/ JARAMILLO balance test. DC d/t pt at prior level of function and safe w/mobility. Pt indep in room/hospital w/mobility and educated to call for assistance if he feels off in any way. RN informed Frequency of Treatment Frequency Of Treatment Discharge Recommendations To Nursing Amount of Assist Needed Independent Discharge Recommendations PT Discharge Recommendations Home Transportation Needs at Discharge Private Vehicle
--- NOTE | 2023-01-24 09:26 | PM.DS.1 ---
History of Present Illness History of Present Illness Date Patient Seen: 01/24/23 Time Patient Seen: 09:26 Chief complaint: dr ref/afib Narrative: Gera Bennett is a 67-year-old male with a past medical history of TIA, PFO closure (20yrsago), and asthma takes only albuterol and Flovent, who woke up this morning feeling a pounding rapid heart rate with no other associated symptoms. Lives on [facility] presented to the ED with hypertensive urgency 139/102, 142/103, in atrial fibrillation heart rates 116-139. I personally reviewed- EKG: AFib with RVR rate 143 ST depression in V4, V5, V6, no EKG for comparison. Patient was given 2 doses 10 mg IV diltiazem without improvement, was placed on diltiazem drip, was also then given oral metoprolol 25 mg. 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 On admit patient denies chest pain, shortness in breath, headache, changes in vision, difficulty swallowing, speech impairment, weakness, numbness, tingling, difficulty with ambulation, recent falls, head injury, LOC, fever, body aches, chills, cough, recent exposure to illness, abdominal pain, nausea, vomiting, urinary incontinence/retention, dysuria, frequency, urgency, hematuria, bowel changes, constipation, incontinence, melena, rashes, recent changes to medication, illness, injury, or trauma. Patient continues to be asymptomatic at the time of admit, diltiazem drip has been paused as his heart rate has been dipping into the 50s. Temp 98.3?, 124/82, 67, 18, 97% on room air. Patient is sitting up on the side of the bed eating comfortably. CBC CMP are all normal, initial troponins are normal 0.025, 0.028. D-dimer 368 and BNP 73 are normal. Chest x-ray is negative. Patient is admitted for atrial fibrillation with RVR. Discharge Providers Provider Date of admission: 01/23/23 18:08 Discharge Date: 01/24/23 Primary care physician: Carol West PA-C Consults: 01/23/23 21:22 Consult to Dietitian, Adult Routine Comment: Reason For Exam: BMI 26 Discharge provider: Mars Cobb DO Summary Hospital Course Discharge Diagnosis: Atrial fibrillation, new dianosis, acute, present on admission Hypertensive urgency without the diagnosis of hypertension, acute, present on admission Asthma, chronic, moderate, present on admission without acute exacerbation. Overweight, mild, acute on chronic, present on admission Hospital Course: Gera Bennett is a 67-year-old male with a history of TIA and PFO closure 20 years ago, asthma and takes albuterol and Flovent who was admitted to ICU observation for AFib with RVR on a diltiazem drip. He rapidly improved with oral metoprolol and was rate controlled shortly after admission on 25 mg BID of oral metoprolol. He was asymptomatic with rate control. Troponins were within normal limits. He was started on apixaban given prior CVA/TIA in the setting of PFO and age and elevated CHADS-VASC scoring. His echocardiogram showed borderline EF at 45-50%, repeat echocardiogram is recommended after adequate medical management of atrial fibrillation with PCP and follow up with cardiology is recommended as an outpatient. Time Spent with Patient Time spent: Greater than 30 minutes Exam Vital Signs (past 8 hours): - 01/24/23 04:00 01/24/23 02:00 01/24/23 03:00 Temperature 97.5 F L Pulse Rate 64 69 60 Respiratory Rate 14 15 16 Blood Pressure 138/75 Pulse Oximetry 95 96 97 Oxygen Flow Rate 0 01/24/23 04:00 01/24/23 04:00 01/24/23 05:00 Temperature Pulse Rate 72 64 Respiratory Rate 13 12 Blood Pressure 138/75 Pulse Oximetry 95 Oxygen Flow Rate 01/24/23 06:00 01/24/23 07:00 01/24/23 08:00 Temperature 97.2 F L Pulse Rate 69 71 67 Respiratory Rate 15 13 17 Blood Pressure 109/67 Pulse Oximetry 98 Oxygen Flow Rate 0 Oxygen Delivery Method Room Air Oxygen Flow Rate 0 Narrative Exam Narrative: General: Patient is a well-developed, well-nourished in no distress at this time. HEENT: Normocephalic, atraumatic, extraocular muscles intact, oral pharynx is clear and mucous membranes are moist. Neck is supple and symmetric, trachea is midline, no adenopathy, no thyroid enlargement, nontender, no masses palpated. Negative for JVD Chest: Normal AP diameter and contour without kyphoscoliosis, Equal chest rise without nasal flaring, retractions, tachypneic or labored breathing. Lungs: Auscultation of all lung bishop are clear without adventitious sounds, wheezes, rhonchi, or rales. Cardio: regular rate and rhythm without murmur, rubs, or gallops, no carotid bruit, no cardiac pulsations present. Abdomen: Soft nontender, negative for organomegaly, or masses. Bowel sounds are present in all 4 quadrants without guarding or rebound, no CVA tenderness. Musculoskeletal: Muscle strength and tone are equal, no deformity, crepitus, effusions, cyanosis, clubbing or edema present. Full range of motion intact radial and pedal pulses are normal. Skin: Warm dry and intact without rashes, ulcerations or petechiae. Neuro: Alert and orientated x3, moves all extremities, sensation to touch intact, no gross deficits noted of cranial nerves. Psych: Patient has a well-kept appearance, appropriate affect, mental status attitude thought context and judgment are appropriate for age. Objective Labs 01/23/23 15:00 01/24/23 04:20 Labs: Laboratory Results - last 24 hr 01/23/23 01/23/23 01/23/23 15:00 15:00 15:00 WBC 7.4 RBC 4.75 Hgb 15.5 Hct 44.6 MCV 94.0 MCH 32.5 MCHC 34.6 RDW 12.4 Plt Count 183 Neut % (Auto) 52.9 Lymph % (Auto) 29.2 [place] % (Auto) 15.2 H Eos % (Auto) 1.7 L Baso % (Auto) 1.0 Neut # (Auto) 3900 Lymph # (Auto) 2200 [place] # (Auto) 1100 H Eos # (Auto) 100 Baso # (Auto) 100 PT 11.5 INR 1.0 APTT 32 D-Dimer Sodium 136 L Potassium 4.5 Chloride 102 Carbon Dioxide 26 BUN 15 Creatinine 0.83 Estimated GFR > 60 BUN/Creatinine Ratio 18.1 Glucose 93 Calcium 9.1 Magnesium 1.9 Total Bilirubin 1.0 AST 37 ALT 26 Alkaline Phosphatase 68 Total Creatine Kinase 47 L Troponin I 0.025 NT-Pro-B Natriuret Pep Total Protein 7.8 Albumin 4.4 Globulin 3.4 Albumin/Globulin Ratio 1.3 Triglycerides Cholesterol LDL Cholesterol, Calc HDL Cholesterol Lipase 79 TSH Free T4 Ethyl Alcohol 01/23/23 01/23/23 01/23/23 15:00 15:00 15:00 WBC RBC Hgb Hct MCV MCH MCHC RDW Plt Count Neut % (Auto) Lymph % (Auto) [place] % (Auto) Eos % (Auto) Baso % (Auto) Neut # (Auto) Lymph # (Auto) [place] # (Auto) Eos # (Auto) Baso # (Auto) PT INR APTT D-Dimer 368 Sodium Potassium Chloride Carbon Dioxide BUN Creatinine Estimated GFR BUN/Creatinine Ratio Glucose Calcium Magnesium Total Bilirubin AST ALT Alkaline Phosphatase Total Creatine Kinase Troponin I NT-Pro-B Natriuret Pep 73 Total Protein Albumin Globulin Albumin/Globulin Ratio Triglycerides Cholesterol LDL Cholesterol, Calc HDL Cholesterol Lipase TSH 2.24 Free T4 Ethyl Alcohol 01/23/23 01/23/23 01/23/23 18:03 19:50 19:50 WBC RBC Hgb Hct MCV MCH MCHC RDW Plt Count Neut % (Auto) Lymph % (Auto) [place] % (Auto) Eos % (Auto) Baso % (Auto) Neut # (Auto) Lymph # (Auto) [place] # (Auto) Eos # (Auto) Baso # (Auto) PT INR APTT D-Dimer Sodium Potassium Chloride Carbon Dioxide BUN Creatinine Estimated GFR BUN/Creatinine Ratio Glucose Calcium Magnesium Total Bilirubin AST ALT Alkaline Phosphatase Total Creatine Kinase Troponin I 0.028 NT-Pro-B Natriuret Pep Total Protein Albumin Globulin Albumin/Globulin Ratio Triglycerides Cholesterol LDL Cholesterol, Calc HDL Cholesterol Lipase TSH Free T4 1.29 Ethyl Alcohol < 10 01/24/23 04:20 WBC RBC Hgb Hct MCV MCH MCHC RDW Plt Count Neut % (Auto) Lymph % (Auto) [place] % (Auto) Eos % (Auto) Baso % (Auto) Neut # (Auto) Lymph # (Auto) [place] # (Auto) Eos # (Auto) Baso # (Auto) PT INR APTT D-Dimer Sodium 138 Potassium 4.1 Chloride 106 Carbon Dioxide 26 BUN 16 Creatinine 0.78 Estimated GFR > 60 BUN/Creatinine Ratio 20.5 Glucose 95 Calcium 8.6 Magnesium 2.1 Total Bilirubin AST ALT Alkaline Phosphatase Total Creatine Kinase Troponin I 0.019 NT-Pro-B Natriuret Pep Total Protein Albumin Globulin Albumin/Globulin Ratio Triglycerides 88 Cholesterol 184 LDL Cholesterol, Calc 107 H HDL Cholesterol 59 Lipase TSH Free T4 Ethyl Alcohol PFSH Medical History Asthma History of TIA (transient ischemic attack) Surgical History S/P patent foramen ovale closure Family History (Updated 01/23/23 @ 21:14 by JOSE Price) Father Lung fibrosis Sister Status post ablation of atrial fibrillation Mother Congestive heart failure Social History (Updated 01/23/23 @ 21:15 by JOSE Price) marital status: household members: spouse lives independently: Yes housing: house occupational status: employed Smoking Status: Never smoker alcohol intake: current substance use type: does not use Discharge Plan Discharge Plan Patient Disposition: Home Provider Discharge Comment: You were admitted to the hospital with atrial fibrillation with rapid heart rate, improved with medications to slow your heart rate down. Echocardiogram read is pending at the time of discharge, please follow up with your primary care provider within 2 weeks to discuss further management of this arrythmia in the coming months. Discharge orders & Medications Prescriptions: New metoprolol tartrate 25 mg Tablet 25 mg PO BID 30 Days Qty: 60 0RF Eliquis 5 mg Tablet 5 mg PO BID 30 Days Qty: 60 0RF Continued albuterol sulfate 90 mcg/actuation HFA aerosol inhaler 90 mcg INHALATION Q4H Patient Comments: inhale 2 puff by mouth every 4 hours if needed for shortness of breath or wheezing fluticasone propionate [Flovent HFA] 220 mcg/actuation HFA aerosol inhaler 220 mcg INHALATION BID Patient Comments: inhale 1 puff by mouth and INTO THE LUNGS twice a day Follow up/Referrals: Carol West PA-C [Primary Care Provider] - Discharge Health Status Multidrug resistant organism: No MDRO Diet/Activity/Treatments Diet: Diet as Tolerated and Regular Activity: As tolerated Visit Report/Discharge Packet Instructions: Atrial Fibrillation, DI for Atrial Fibrillation Stand Alone Forms: Patient Portal/API, Stroke Signs & Symptoms Discharge Data Primary Care Provider: Carol West Attending Provider: Mars Cobb Admit Date/Time: 01/23/23 18:08 Discharges patient from system. Discharge Date/Time: 01/24/23 11:50
== END 2023-01-24 11:50 | disposition home or self-care (01) ==
LOC: ED 17:54 → ICU 01-24 06:50 → AC 01-24 10:17 → ICU 01-24 10:17
PROVIDERS: Nurse Practitioner Family; Admitting Provider Internal Medicine; Emergency Provider Emergency Medicine; PCP Physician Assistant; Referring Provider Emergency Medicine; Visit Provider Internal Medicine
DX: I48.91 Unspecified atrial fibrillation (principal); J45.909 Unspecified asthma, uncomplicated; Z86.73 Personal history of transient ischemic attack (TIA), and cerebral infarction without residual deficits
CPT/HCPCS: 36415; 71045; 80048; 80053; 80061; 80320; 82550; 83690; 83735; 83880; 84439; 84443; 84484; 85025; 85379; 85610; 85730; 93005; 93306; 96361; 96365; 96366; 96375; 97161; 99284; G0378